=== PATIENT | male | born 1935 | race Caucasian/White ===

== ENCOUNTER → 2016-04-15 | Outpatient (REF) | payer OTHER | LOC: M LAB REF 16:49 | PROVIDERS: ATTEND Nurse Practitioner Adult Health | DX: E78.00 Pure hypercholesterolemia, unspecified (principal) ==

== ENCOUNTER 2018-02-22 09:02 | Inpatient (IN) | payer MEDICARE ==
[2018-02-22 09:41] LABS: BASO % 0.4 % (0.0-1.0); EOS % 0.2 % (0.0-3.0); HEMATOCRIT 38.8 % (42.0-52.0); HEMOGLOBIN 13.1 g/dl (13.5-17.5); IMMATURE GRANULOCYTE % 0.4 % (0-3.0); LYMPH # 1.1 10^3/uL (1.5-4.5); LYMPH % 10.3 % (24.0-44.0); MEAN CORPUSCULAR HEMOGLOBIN 30.5 pg (27.0-33.0); MEAN CORPUSCULAR HGB CONC 33.8 g/dl (32.0-36.5); MEAN CORPUSCULAR VOLUME 90.4 fl (80.0-96.0); MONO # 0.5 10^3/uL (0.0-0.8); NEUTROPHILS # 8.6 10^3/uL (1.8-7.7); NEUTROPHILS % 83.7 % (36.0-66.0); PLATELET COUNT, AUTOMATED 284 10^3/uL (150-450); RED BLOOD COUNT 4.29 10^6/uL (4.30-6.10); RED CELL DISTRIBUTION WIDTH 12.7 % (11.5-14.5); WHITE BLOOD COUNT 10.3 10^3/uL (4.0-10.0)
[2018-02-22] MEDS: methylPREDNISolone INJ 125 MG/2 ML VIAL (J2930) IV (09:44)
[2018-02-22] MEDS: FUROSEMIDE 40 MG/4 ML VIAL (J1940) IV ×2 (09:45→17:54)
[2018-02-22 09:50] LABS: INR 1.02; PROTHROMBIN TIME 13.6 SECONDS (12.1-14.4)
[2018-02-22] MEDS: IPRATROPIUM 0.5MG/ALBUTEROL 2.5MG INH SOL UD 3ML (DUONEB)(J7620) NEB (09:52)
[2018-02-22] MEDS: ALBUTEROL SULFATE 2.5 MG/0.5 ML INH NEB SOLN INH (09:52)
[2018-02-22 10:02] LABS: ABG HCO3 20.4 MEQ/L (22.0-26.0); ABG O2 SATURATION 93.8 % (95.0-99.0); ABG PARTIAL PRESSURE CO2 28.8 mmHg (35.0-45.0); ABG PARTIAL PRESSURE O2 67.6 mmHg (75.0-100.0); ABG STANDARD HCO3 22.7 MEQ/L (22.0-26.0); ABG TOTAL CO2 21.3 MEQ/L (23.0-31.0); ABG pH (ARTERIAL) 7.468 UNITS (7.350-7.450)
[2018-02-22 10:14] LABS: ALBUMIN 3.5 GM/DL (3.2-5.2); ALBUMIN/GLOBULIN RATIO 1.06 (1.00-1.93); ALKALINE PHOSPHATASE 113 U/L (45-117); ALT/SGPT 10 U/L (12-78); ANION GAP 10 MEQ/L (8-16); AST/SGOT 18 U/L (7-37); BILIRUBIN,DIRECT 0.2 MG/DL (0.0-0.2); BILIRUBIN,TOTAL 0.7 MG/DL (0.2-1.0); BLOOD UREA NITROGEN 16 MG/DL (7-18); CALCIUM LEVEL 8.6 MG/DL (8.8-10.2); CARBON DIOXIDE LEVEL 23 MEQ/L (21-32); CHLORIDE LEVEL 103 MEQ/L (98-107); CPK CREATINE PHOSPHOKINASE 192 U/L (39-308); CREATININE FOR GFR 1.12 MG/DL (0.70-1.30); GLOMERULAR FILTRATION RATE > 60.0 (>35); GLUCOSE, FASTING 175 MG/DL (70-100); INFLUENZA A AMPLIFICATION NEGATIVE (NEGATIVE); INFLUENZA B AMPLIFICATION NEGATIVE (NEGATIVE); MB/CK RELATIVE INDEX 3.65 (< OR =4); NT-PRO BNP 3007 PG/ML (<450); POTASSIUM SERUM 4.6 MEQ/L (3.5-5.1); SODIUM LEVEL 136 MEQ/L (136-145); THYROXINE (T4) 9.9 UG/DL (4.5-12.0); TOTAL PROTEIN 6.8 GM/DL (6.4-8.2); TROPONIN I 0.69 NG/ML (< 0.10)
[2018-02-22] MEDS: LORazepam 2 MG/ML VIAL (J2060) IV ×2 (10:43→16:40)
[2018-02-22] MEDS: NITROGLYCERIN 2% OINT 1 GM *U/D* PKT TOP (10:45)
[2018-02-22 11:19] LABS: KETONE, URINE AUTO RFX NEGATIVE (NEGATIVE); LEUKOCYTE ESTERASE UR AUTO RFX NEGATIVE (NEGATIVE); MUCUS, URINE RFX SMALL (NEGATIVE); NITRITE, URINE AUTO RFX NEGATIVE (NEGATIVE); RBC, URINE AUTO RFX 2 /HPF (0-3); SPECIFIC GRAVITY UR AUTO RFX 1.008 (1.002-1.035); SQUAM EPITHELIAL CELL UR AURFX 0 /HPF (0-6); WBC, URINE AUTO RFX 1 /HPF (0-3)
[2018-02-22 11:59] LABS: CPK CREATINE PHOSPHOKINASE 194 U/L (39-308); MB/CK RELATIVE INDEX 3.81 (< OR =4); TROPONIN I 0.75 NG/ML (< 0.10)
[2018-02-22] MEDS ORDERED: ACETAMINOPHEN TAB 650MG DOSE (2X325MG) PO (12:45)
[2018-02-22] MEDS: HEPARIN SOD (PORCINE) 5000 UNITS/ML VIAL SC ×2 (14:03→21:01)
[2018-02-22] MEDS ORDERED: ISOVUE-370 76% 100ML VIAL (Q9967) As Ordered (14:45)
[2018-02-22] MEDS ORDERED: GLUCOSE 4 GM CHEW TABLET PO (15:00)
[2018-02-22] MEDS ORDERED: DEXTROSE 50% 50 ML SYRINGE IV (15:00)
[2018-02-22] MEDS ORDERED: GLUCAGON FOR INJ 1 MG VIAL (J1610) SC (15:00)
[2018-02-22] MEDS: HumaLOG INSULIN (NovoLOG) PER UNIT SC ×2 (17:30→21:00)
[2018-02-22 17:45] LABS: BEDSIDE GLUCOSE 185 MG/DL (83-110)
[2018-02-22] MEDS: CLOPIDOGREL 75 MG TAB PO (17:53)
[2018-02-22] MEDS: SPIRONOLACTONE 25 MG TAB PO (17:53)
[2018-02-22 20:58] LABS: CPK CREATINE PHOSPHOKINASE 357 U/L (39-308); MB/CK RELATIVE INDEX 8.12 (< OR =4); TROPONIN I 3.94 NG/ML (< 0.10)
[2018-02-22] MEDS: MONTELUKAST 10 MG TAB PO (21:02)
[2018-02-22] MEDS: ENTRESTO 24-26MG TABLET (SACUBITRIL/VALSARTAN) PO (21:02)
[2018-02-22 21:15] LABS: BEDSIDE GLUCOSE 155 MG/DL (83-110)
[2018-02-23 04:58] LABS: HEMATOCRIT 36.5 % (42.0-52.0); HEMOGLOBIN 12.4 g/dl (13.5-17.5); MEAN CORPUSCULAR HEMOGLOBIN 30.8 pg (27.0-33.0); MEAN CORPUSCULAR VOLUME 90.8 fl (80.0-96.0); PLATELET COUNT, AUTOMATED 283 10^3/uL (150-450); RED BLOOD COUNT 4.02 10^6/uL (4.30-6.10); RED CELL DISTRIBUTION WIDTH 12.8 % (11.5-14.5); WHITE BLOOD COUNT 11.9 10^3/uL (4.0-10.0)
[2018-02-23 05:39] LABS: ANION GAP 7 MEQ/L (8-16); BLOOD UREA NITROGEN 21 MG/DL (7-18); CALCIUM LEVEL 8.2 MG/DL (8.8-10.2); CARBON DIOXIDE LEVEL 27 MEQ/L (21-32); CHLORIDE LEVEL 102 MEQ/L (98-107); CPK CREATINE PHOSPHOKINASE 489 U/L (39-308); CREATININE FOR GFR 0.98 MG/DL (0.70-1.30); GLOMERULAR FILTRATION RATE > 60.0 (>35); GLUCOSE, FASTING 141 MG/DL (70-100); MAGNESIUM LEVEL 2.1 MG/DL (1.8-2.4); MB/CK RELATIVE INDEX 8.14 (< OR =4); POTASSIUM SERUM 4.2 MEQ/L (3.5-5.1); SODIUM LEVEL 136 MEQ/L (136-145); TROPONIN I 9.23 NG/ML (< 0.10)
[2018-02-23] MEDS: FUROSEMIDE 40 MG/4 ML VIAL (J1940) IV ×4 (06:00→18:50)
[2018-02-23] MEDS: HEPARIN SOD (PORCINE) 5000 UNITS/ML VIAL SC ×3 (06:30→21:11)
[2018-02-23] MEDS: ASPIRIN 81 MG ENTERIC TAB PO (07:47)
[2018-02-23] MEDS: CLOPIDOGREL 75 MG TAB PO (07:47)
[2018-02-23] MEDS: SPIRONOLACTONE 25 MG TAB PO (07:47)
[2018-02-23] MEDS: HumaLOG INSULIN (NovoLOG) PER UNIT SC ×4 (07:47→21:00)
[2018-02-23] MEDS: ENTRESTO 24-26MG TABLET (SACUBITRIL/VALSARTAN) PO ×2 (07:52→21:11)
[2018-02-23] MEDS: ATORVASTATIN 20 MG TAB PO (07:52)
[2018-02-23] MEDS ORDERED: MULTIVITAMINS/MINERALS THERAP 1 TAB PO (09:00)
[2018-02-23 11:31] LABS: BEDSIDE GLUCOSE 130 MG/DL (83-110)
[2018-02-23 12:34] LABS: CPK CREATINE PHOSPHOKINASE 583 U/L (39-308); MB/CK RELATIVE INDEX 5.68 (< OR =4); TROPONIN I 8.89 NG/ML (< 0.10)
[2018-02-23] MEDS ORDERED: METOPROLOL TART 25 MG TABLET PO (13:30)
[2018-02-23 17:18] LABS: BEDSIDE GLUCOSE 114 MG/DL (83-110)
[2018-02-23 21:08] LABS: BEDSIDE GLUCOSE 115 MG/DL (83-110)
[2018-02-23] MEDS: MONTELUKAST 10 MG TAB PO (21:11)
[2018-02-24 04:58] LABS: HEMATOCRIT 36.9 % (42.0-52.0); HEMOGLOBIN 12.4 g/dl (13.5-17.5); MEAN CORPUSCULAR HEMOGLOBIN 30.9 pg (27.0-33.0); MEAN CORPUSCULAR HGB CONC 33.6 g/dl (32.0-36.5); PLATELET COUNT, AUTOMATED 280 10^3/uL (150-450); RED BLOOD COUNT 4.01 10^6/uL (4.30-6.10); RED CELL DISTRIBUTION WIDTH 12.9 % (11.5-14.5)
[2018-02-24 05:20] LABS: ANION GAP 9 MEQ/L (8-16); BLOOD UREA NITROGEN 25 MG/DL (7-18); CALCIUM LEVEL 8.2 MG/DL (8.8-10.2); CARBON DIOXIDE LEVEL 28 MEQ/L (21-32); CHLORIDE LEVEL 102 MEQ/L (98-107); CREATININE FOR GFR 1.03 MG/DL (0.70-1.30); GLOMERULAR FILTRATION RATE > 60.0 (>35); GLUCOSE, FASTING 110 MG/DL (70-100); MAGNESIUM LEVEL 2.1 MG/DL (1.8-2.4); POTASSIUM SERUM 3.8 MEQ/L (3.5-5.1); SODIUM LEVEL 139 MEQ/L (136-145)
[2018-02-24] MEDS: FUROSEMIDE 40 MG/4 ML VIAL (J1940) IV ×4 (06:00→17:11)
[2018-02-24] MEDS: HEPARIN SOD (PORCINE) 5000 UNITS/ML VIAL SC ×3 (06:44→21:10)
[2018-02-24] MEDS: CLOPIDOGREL 75 MG TAB PO (08:24)
[2018-02-24] MEDS: ASPIRIN 81 MG ENTERIC TAB PO (08:24)
[2018-02-24] MEDS: ENTRESTO 24-26MG TABLET (SACUBITRIL/VALSARTAN) PO ×2 (08:24→20:22)
[2018-02-24] MEDS: SPIRONOLACTONE 25 MG TAB PO (08:24)
[2018-02-24] MEDS: HumaLOG INSULIN (NovoLOG) PER UNIT SC ×4 (08:24→20:21)
[2018-02-24] MEDS: ATORVASTATIN 20 MG TAB PO (08:24)
[2018-02-24 11:49] LABS: BEDSIDE GLUCOSE 113 MG/DL (83-110)
[2018-02-24 16:53] LABS: BEDSIDE GLUCOSE 124 MG/DL (83-110)
[2018-02-24] MEDS: MONTELUKAST 10 MG TAB PO (20:22)
[2018-02-24 21:24] LABS: BEDSIDE GLUCOSE 165 MG/DL (83-110)
[2018-02-25 05:02] LABS: HEMATOCRIT 39.5 % (42.0-52.0); HEMOGLOBIN 13.4 g/dl (13.5-17.5); MEAN CORPUSCULAR HEMOGLOBIN 30.4 pg (27.0-33.0); MEAN CORPUSCULAR HGB CONC 33.9 g/dl (32.0-36.5); MEAN CORPUSCULAR VOLUME 89.6 fl (80.0-96.0); PLATELET COUNT, AUTOMATED 324 10^3/uL (150-450); RED BLOOD COUNT 4.41 10^6/uL (4.30-6.10); RED CELL DISTRIBUTION WIDTH 12.4 % (11.5-14.5); WHITE BLOOD COUNT 10.1 10^3/uL (4.0-10.0)
[2018-02-25 05:24] LABS: ANION GAP 8 MEQ/L (8-16); BLOOD UREA NITROGEN 19 MG/DL (7-18); CALCIUM LEVEL 7.9 MG/DL (8.8-10.2); CARBON DIOXIDE LEVEL 29 MEQ/L (21-32); CHLORIDE LEVEL 103 MEQ/L (98-107); CREATININE FOR GFR 0.99 MG/DL (0.70-1.30); GLOMERULAR FILTRATION RATE > 60.0 (>35); GLUCOSE, FASTING 116 MG/DL (70-100); MAGNESIUM LEVEL 2.2 MG/DL (1.8-2.4); POTASSIUM SERUM 3.7 MEQ/L (3.5-5.1); SODIUM LEVEL 140 MEQ/L (136-145)
[2018-02-25] MEDS: HEPARIN SOD (PORCINE) 5000 UNITS/ML VIAL SC (05:42)
[2018-02-25] MEDS: HumaLOG INSULIN (NovoLOG) PER UNIT SC ×2 (07:58→12:00)
[2018-02-25] MEDS: ENTRESTO 24-26MG TABLET (SACUBITRIL/VALSARTAN) PO (09:13)
[2018-02-25] MEDS: CLOPIDOGREL 75 MG TAB PO (09:13)
[2018-02-25] MEDS: SPIRONOLACTONE 25 MG TAB PO (09:13)
[2018-02-25] MEDS: FUROSEMIDE 40 MG TAB PO (09:14)
[2018-02-25] MEDS: ATORVASTATIN 20 MG TAB PO (09:14)
[2018-02-25] MEDS: ASPIRIN 81 MG ENTERIC TAB PO (09:14)
[2018-02-25 12:00] LABS: BEDSIDE GLUCOSE 114 MG/DL (83-110)
== END 2018-02-25 12:30 | disposition home or self-care (01) | DRG 291 ==
LOC: M ED 09:02 → M PCU 02-24 17:25 → M ED INP 12:34 → M ICU 15:29
DX: I11.0 Hypertensive heart disease with heart failure (principal); J96.00 Acute respiratory failure, unspecified whether with hypoxia or hypercapnia; I50.43 Acute on chronic combined systolic (congestive) and diastolic (congestive) heart failure; E11.51 Type 2 diabetes mellitus with diabetic peripheral angiopathy without gangrene; I25.10 Atherosclerotic heart disease of native coronary artery without angina pectoris; Z79.899 Other long term (current) drug therapy; I08.0 Rheumatic disorders of both mitral and aortic valves; Z79.82 Long term (current) use of aspirin; Z66 Do not resuscitate; E78.00 Pure hypercholesterolemia, unspecified; Z88.8 Allergy status to other drugs, medicaments and biological substances; I25.2 Old myocardial infarction; Z87.891 Personal history of nicotine dependence; Z85.828 Personal history of other malignant neoplasm of skin